=== PATIENT | female | born 1955 | race Caucasian/White ===

== ENCOUNTER 2021-10-18 10:36 | Outpatient (CLI) | payer MEDICARE, BC | END 2021-10-18 10:37 | disposition home or self-care (01) | LOC: CSHMRI 10:36 | PROVIDERS: ATTEND Surgery | DX: M48.062 Spinal stenosis, lumbar region with neurogenic claudication (principal); M47.816 Spondylosis without myelopathy or radiculopathy, lumbar region | CPT/HCPCS: 72110; 72148 ==

== ENCOUNTER 2022-06-09 12:42 | Outpatient (CLI) | payer MEDICARE, BC | END 2022-06-09 12:43 | disposition home or self-care (01) | LOC: CSHMRI 12:42 | PROVIDERS: ATTEND Surgery | DX: M43.16 Spondylolisthesis, lumbar region (principal); M47.816 Spondylosis without myelopathy or radiculopathy, lumbar region; Z98.890 Other specified postprocedural states; M48.061 Spinal stenosis, lumbar region without neurogenic claudication | CPT/HCPCS: 72120; 72131; 72148 ==